=== PATIENT | male | born 1965 | race Caucasian/White ===

== ENCOUNTER 2016-11-03 09:07 | Emergency (ER) | payer BC ==
[~2016-11-03] VITALS: Ht 182.9 cm; Wt 97.5 kg
[~2016-11-03 09:07] MED LIST: ANDROGEL1% TP; FLEXERIL10 MG PO; GABAPENTIN 600600 MG PO; KEFLEX 500MG.500 MG PO; LORTAB 5/500 501 TAB PO; NAPROXEN SODIU500 MG PO; PRILOSEC40 MG PO
--- NOTE | 2016-11-03 09:11 | Emergency Room Report ---
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 Clinical Suspician of Infection? Mental Status: Sepsis Risk: Have you (or family members/close friends) recently traveled outside the [place]? If Yes, where/when: Have you had exposure to infectious disease within the past month? TB? Other? Specify: Source patient, RN notes reviewed Exam Limitations no limitations Comment Pt started having pain in right mid to low back after lifting a dog house a couple of days ago. Today pain is going around right side to right upper quadrant. No vomiting, diarrhea or fever, and no rashes visible. He is concerned about appendix but this is not in the right location and I can not do a CT scan as the machine is down...he has been told this as well Cardiac Chest Pain Chest pain indicative of cardiac No ALLERGIES Coded Allergies: No Known Allergies (11/03/16) Home Medications Reported Medications Simvastatin 20 MG PO QHS #30 Omeprazole (Omeprazole 40MG) 40 MG PO BID #60 Lisinopril 10 MG PO DAILY #30 Etodolac 400 MG PO BID #60 Testosterone (Axiron) 30 MG TP DAILY #90 History Medical History General Angina: No LA: No Hypertension? No Hyperlipidemia? No CHF? No COPD? No Asthma? No CVA? No Seizures? No Diabetes? No GB Disease: No MRSA? No TB? No Cancer? No Immunization Hx DT/Tetanus 12/05/10 Surgical Hx Previous Surgery?N Social History Alcohol Alcohol: No Review of Systems All Other Systems Reviewed and Negative Constitutional see HPI Gastrointestinal see HPI Musculoskeletal see HPI Physical Exam Vital Signs Vital Signs Date Time Temp Pulse Resp B/P Pulse O2 O2 Flow FiO2 Ox Delivery Rate 11/03 1055 97.5 72 18 147/80 98 11/03 1003 98.8 74 18 133/80 96 11/03 0914 97.6 88 18 143/101 96 General Appearance normal appearance, WD/WN, no apparent distress Respiratory Status No: respiratory distress. Lung Sounds bilateral: normal breath sounds. 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 Yes Naveen was queried for this patient? Yes Reference #: [id number] Risks/benefits of using a controlled substance for treatment were not discussed w/pt Comment Pt has received prescriptions every month for the past year for Testosterone supplement but no Narcotics. Results/Orders Laboratory Tests 11/03/16 1030: Sodium 137, Potassium 4.1, Chloride 103, Carbon Dioxide 26, BUN 13, Creatinine 1.0, Estimated Creat Clear 121, Estimated GFR (MDRD) 79, Glucose 92, Calcium 8.6 , Total Bilirubin 0.9, AST 35, ALT 60, Alkaline Phosphatase 76, Total Protein 7.6, Albumin 4.2, Globulin 3.4 H, Albumin/Globulin Ratio 1.2, Amylase 27, Lipase 139, WBC 6.7, RBC 4.91, Hgb 16.2, Hct 46.8, MCV 95.4, RDW 13.1, Plt Count 274, MPV 6.1 L, Gran % 72.0, Gran # 4.8, Lymphocytes % 19.9, Monocytes % 6.6, Eosinophils % 0.9, Basophils % 0.5, Lymphocytes # 1.3, Monocytes # 0.4, Eosinophils # 0.1, Basophils # 0.0, PUBS MCHC 34.7, MCH 33.1 H Orders Procedure Date/time Status LUMBAR SPINE 5 VIEWS 11/03 1021 Active URINALYSIS/COMPLETE 11/03 1021 Active LIPASE 11/03 1021 Complete CBC WITH AUTO DIFF 11/03 1021 Complete CHEM 12 PROFILE 11/03 1021 Complete AMYLASE 11/03 1021 Complete Departure Departure Time of Disposition 1201 Disposition DC Home or Self Care(routine) Clinical Impression Primary Impression: Spinal stenosis, lumbar Secondary Impressions: Spondylolisthesis at L4-L5 level Condition STABLE Referrals Shaji Cade MD (Family): 2 Days-Call Office Patient Instructions DI for Low Back Pain, Low Back Pain, Managing Chronic Low Back Pain Additional Instructions Use medicines as directed but if any worse, followup with Spine surgeon Discharge Counseling Counseled pt/family regarding diagnosis, test results, medications/RX, home care, follow up needs Prescriptions Current Visit Scripts HYDROCODONE 5MG/APAP 325MG (Hydrocodon-Acetaminophen 5-325) 1 TAB PO Q4HP PRN pain #20 TAB Methocarbamol (Robaxin) 500 MG PO TID #30 TAB ED Critical Care Critical Care No If Critical Care minutes are documented, the time involved in the performance of seperately reportable procedures was not counted toward critical care time documented. I directly delivered medical care to this critically ill and/or injured patient. Timely evaluation and treatment was necessary to address the significant organ system(s) dysfunction present in this patient. at 1205
[2016-11-03] MEDS ORDERED: SIMVASTATIN20 MG PO (09:21)
[2016-11-03] MEDS ORDERED: LISINOPRIL10 MG PO (09:22)
[2016-11-03] MEDS ORDERED: OMEPRAZOLE40 MG PO (09:22)
[2016-11-03] MEDS ORDERED: ETODOLAC400 MG PO (09:22)
[2016-11-03] MEDS ORDERED: AXIRON30 MG/1.5 TP (09:23)
[2016-11-03 10:41] LABS: HEMOGLOBIN 16.2 g/dL (14.1-18.0); LYMPH # 1.3 K/mm3 (0.7-4.5); LYMPH % 19.9 % (10-50)
[2016-11-03] MEDS ORDERED: ROBAXIN500 M1 PO (12:04)
[2016-11-03] MEDS ORDERED: HYDROCODONE-APA1 TA1 PO (12:04)
[2016-11-03 12:10] VITALS: BP 142/87
--- NOTE | 2016-11-03 13:36 | RADIOLOGY REPORT PS360 ---
LUMBAR SPINE 5 VIEWS Ordering Physician: Modesto Bernal MD Patient Age: 51 years: Male HISTORY: back painlow back pain Lifting heavy object 2 days ago now has pain around L4/5 which radiates to iliac crest. TECHNIQUE: 5 view lumbar spine series FINDINGS Bilateral pars defect at L4 with early Grade 2 spondylolisthesis of L4 on L5. Estimate nearly 12 mm anterio offset of L4 on L5. Marked Disc space narrowing L4/5 associated with prominent reactive endplate changes and sclerosis.. . L5/S1. Borderline to mild disc space narrowing. Sacralization L5 on the right with pseudoarthrosis formation with sacrum. There may be some borderline sacralization left as well L3/4 disc spaces well-maintained. L2/3 There is mild narrowing at L2/3 disc space. L1/2 Borderline disc space narrowing. Vertebral bodies are intact . Hypertrophic facet changes at L4/5 and L5/S1. Pedicles intact. Bones well mineralized. IMPRESSION: Bilateral pars defect at L4, with grade 2 spondylolisthesis of L4 on L5.
--- OUTSIDE RECORDS SUMMARY | 2016-11-04 22:13 | External Medical Summary Rpt ---
Author Author , Organization [employer] Address Unknown Phone Unavailable Care Team Providers Care Metal Casket Assembler Name Role Phone Talon Ragsdale MD, Unavailable Unavailable Talon Ragsdale MD Purpose Continuity of Care Document - 08-12-2013 through 2016 Problems Code Diagnosis DOS Provider Status 918.1 918.1 08-12-2013 [facility] E849.8 E849.8 08-12-2013 Dany ACCIDENT IN [facility] [id number] FB 08-12-[address] [facility] M43.16 SPONDYLOLIS THESIS, LUMBAR REGION M48.06 SPINAL STENOSIS, LUMBAR REGION Allergies, Adverse Reactions, Alerts Type Allergy to substance Adverse Reaction to Substance Substance Reaction Severity NO KNOWN ALLERGIES Unknown Unknown Medications Na ND Rx Da Fi Fi Am Da Di Ph RX Ph St me C No te ll ll ou ys ag ar # ys at rm s nt no ma ic us Or Da si cy ia de te s n re d AC 51 02 0 No ET 07 -0 AM 90 5- Lo IN 16 20 ng OP 19 14 er HE 9H N Ac W/ ti CO ve DE IN E #3 TA K FU 17 02 0 No L- 47 -0 GL 80 5- Lo O 40 20 ng 1 40 14 er MG 1 Ac OP ti TH ve ST RI PS CY 00 02 0 No CL 06 -0 OG 50 5- Lo YL 39 20 ng 70 14 er 2% 2 Ac EY ti E ve DR OP S GE 17 02 0 No NT 47 -0 AK 80 5- Lo 28 20 ng 0. 43 14 er 3 5 % Ac EY ti E ve OI NT ME NT Vital Signs 08-12-2013 21:02 Name Value Interpretat Reference Comment ion Range BP 78 mm[Hg] Diastolic BP Systolic 130 mm[Hg] Heart 62 /min Rate/Pulse O2% 98 % Respiratory 18 /min Rate Encounters Encounter Start End Date Code Location Performer Type Date Emergency DOMINGUEZ Ragsdale MD (ER) 4 20:47 4 21:03 [facility]
--- OUTSIDE RECORDS SUMMARY | 2016-11-04 22:13 | External Medical Summary Rpt ---
Author Author [employer] Wagner, [employer] Organization [employer] Address Unknown Phone Unavailable
--- OUTSIDE RECORDS SUMMARY | 2016-11-04 22:13 | External Medical Summary Rpt ---
Author Author [employer] Organization [employer] Address Unknown Phone Unavailable Purpose Continuity of Care Document - through 2016
--- OUTSIDE RECORDS SUMMARY | 2016-11-04 22:13 | External Medical Summary Rpt ---
Demographics Preferred Language Telugu Marital Status Unknown Sabianism Affiliation Unknown Race Unknown Ethnic Group Unknown Author Author , Organization [employer] Address Unknown Phone Unavailable Purpose Continuity of Care Document - through 2016 Immunization No patient found.
--- OUTSIDE RECORDS SUMMARY | 2016-11-04 22:13 | External Medical Summary Rpt ---
Author Author , Organization [employer] Address Unknown Phone Unavailable Care Team Providers Care Dehydrating Press Operator Name Role Phone Talon Ragsdale MD, Unavailable Unavailable Talon Ragsdale MD Purpose Continuity of Care Document - 08-12-2013 through 2016 Problems Code Diagnosis DOS Provider Status 918.1 918.1 08-12-2013 [facility] E849.8 E849.8 08-12-2013 Dany ACCIDENT IN [facility] [id number] FB 08-12-2013 Dany ENTERING [facility] M43.16 SPONDYLOLIS THESIS, LUMBAR REGION M48.06 [...] Ragsdale MD (ER) 4 20:47 4 21:03 [facility]
--- OUTSIDE RECORDS SUMMARY | 2016-11-04 22:13 | External Medical Summary Rpt ---
Demographics Preferred Language Divehi Marital Status Unknown Mandaen Affiliation Unknown Race Unknown Ethnic Group Unknown Author Author , Organization [employer] Address Unknown Phone Unavailable Purpose Continuity of Care Document - through 2016 Immunization No patient found.
--- OUTSIDE RECORDS SUMMARY | 2016-11-04 22:17 | External Medical Summary Rpt ---
Demographics Preferred Language Japanese Marital Status Unknown Orthodoxy Affiliation Unknown Race Unknown Ethnic Group Unknown Author Author , Organization [employer] Address Unknown Phone Unavailable Purpose Continuity of Care Document - through 2016 Immunization No patient found.
--- OUTSIDE RECORDS SUMMARY | 2016-11-04 22:17 | External Medical Summary Rpt ---
Demographics Preferred Language Welsh Marital Status Unknown Buddhism Affiliation Unknown Race Unknown Ethnic Group Unknown Author Author , Organization [employer] Address Unknown Phone Unavailable Purpose Continuity of Care Document - through 2016 Immunization No patient found.
--- OUTSIDE RECORDS SUMMARY | 2016-11-04 22:17 | External Medical Summary Rpt ---
Author Author , Organization [employer] Address Unknown Phone Unavailable Care Team Providers Care Entry Level Sales Consultant Name Role Phone Talon Ragsdale MD, Unavailable Unavailable Talon Ragsdale MD Purpose Continuity of Care Document - 08-12-2013 through 2016 Problems Code Diagnosis DOS Provider Status 918.1 918.1 08-12-2013 [facility] E849.8 E849.8 08-12-2013 Dany ACCIDENT IN [facility] E914 [id number] FB 08-12-2013 Dany ENTERING [facility] M43.16 SPONDYLOLIS THESIS, LUMBAR REGION M48.06 [...] Ragsdale MD (ER) 4 20:47 4 21:03 [facility]
--- OUTSIDE RECORDS SUMMARY | 2016-11-04 22:17 | External Medical Summary Rpt ---
Author Author , Organization [employer] Address Unknown Phone Unavailable Care Team Providers Care Executive Producer Name Role Phone Talon Ragsdale MD, Unavailable Unavailable Talon Ragsdale MD Purpose Continuity of Care Document - 08-12-2013 through 2016 Problems Code Diagnosis DOS Provider Status 918.1 918.1 08-12-2013 [facility] E849.8 E849.8 08-12-2013 Dany ACCIDENT IN [facility] E914 [id number] FB 08-12-2013 Dany ENTERING [facility] M43.16 SPONDYLOLIS THESIS, LUMBAR REGION M48.06 [...] Ragsdale MD (ER) 4 20:47 4 21:03 [facility]
== END 2016-11-03 12:10 | disposition home or self-care (01) ==
LOC: ER 09:07
PROVIDERS: General Practice
DX: M48.06 Spinal stenosis, lumbar region (principal); M43.16 Spondylolisthesis, lumbar region